=== PATIENT | female | born 1935 ===

== ENCOUNTER 2022-03-11 16:47 | Inpatient (IN) | payer OTHER ==
--- OUTSIDE RECORDS SUMMARY | 2022-03-11 16:54 | XMS REPORT | Continuity of Care Document ---
:1935 Author Organization [facility] t Address [address] [place] [address] Care Team Providers Name Role Phone Sharda Carlos Primary Care Physician Lauren ERICKSON Attending Clinician Unavailable Leia Root MD Attending Clinician Naresh GASPAR Attending Clinician NARESH Attending Clinician Unavailable Nurse, Pob Immunization Attending Clinician Unavailable Lavell Mao DO Attending Clinician LAVELL MAO Attending Clinician Unavailable Mark GASPAR, A Attending Clinician Doctor Unassigned, Name Attending Clinician Unavailable 1, Lab Attending Clinician Unavailable Naresh GASPAR Admitting Clinician NARESH Admitting Clinician Unavailable Mark GASPAR, Sandra Admitting Clinician Payers Payer Name Policy Type Policy Number Effective Date Expiration Date S ource Problems Condition Condition Condition Status Onset Resolution Last Treating Co mments Source Name Details Category Date Date Treatment Clinician Date Influenza Influenza Disease Active Uni vers 4-20 ity of 00:00: [place] [address] Medical Branch No known No known Disease Unive rs active active ity of problems problems [facility] Allergies, Adverse Reactions, Alerts Allergy Allergy Status Severity Reaction(s) Onset Inactive Treating Comm ents Source Name Type Date Date Clinician Penicill Propensi Active Unknown - 2018-11 Uni vers ins ty to See comments 1-18 ity of adverse 00:00: [place] reaction 00 Medical s Branch Penicill Propensi Active Unknown - 2018-11 Uni vers ins ty to See comments 1-18 ity of adverse 00:00: [place] reaction 00 Medical s Branch PENICILL Drug Active Unknown-Cmnt 2018-1 Un dre INS Class 1-18 ity of 00:00: [place] 00 Medical [place] Social History Social Habit Start Date Stop Date Quantity Comments Source Exposure to 2022-02-23 2022-03-05 Not sure [facility] SARS-CoV-2 00:00:00 03:20:00 [facility] (event) Branch Alcohol intake 2022-03-05 2022-03-05 Ex-drinker [facility] 00:00:00 00:00:00 (finding) [facility] Tobacco use and 2019-10-03 2019-10-03 Never used Universit y of exposure 00:00:00 00:00:00 [facility] Sex Ass[birth year] Universit y of 00:00:00 00:00:00 [facility] Smoking Status Start Date Stop Date Source Former smoker 2019-10-03 00:00:00 2019-10-03 00:00:00 [facility] Medications Ordered Filled Start Stop Current Ordering Indication Dosage Frequency Signature Comments Components Source Medication Medication Date Date Medication? Clinician (SIG) Name Name predniSONE 2021- Yes [id number] 20mg Take 1 Univers 20 mg 03-07- tablet by ity of tablet 00:00: 04:59 mouth [place] 00 :00 daily for Medical 3 days. Branch predniSONE 2021- Yes [id number] 20mg Take 1 Univers 20 mg 03-07- tablet by ity of tablet 00:00: 04:59 mouth [place] 00 :00 daily for Medical 3 days. Branch hydroCHLORO Yes 12.5mg 12.5 mg, Univers thiazide - Oral, ity of (ESIDRIX) 14:00: DAILY, [place] tablet 12.5 00 First dose Me dical mg on [place] Branch 03/06/22 at 0900, Until Discontinu ed, Routine predniSONE 2021- Yes 20mg 20 mg, Univ ers (DELTASONE) 03-06- Oral, ity of tablet 20 14:00: 13:59 DAILY, 4 [place] as mg 00 :00 doses, Medical First dose Branch on [place] 03/06/22 at 0900, Last dose on 03/09/22 at 0900, Routine hydrALAZINE 2022-0 Yes 25mg 25 mg, Univ ers (APRESOLINE 4-21 Oral, BID, it y of ) tablet 25 13:45: First dose [place] mg 00 on [place] Medical 03/06/22 at Branch 0845, Until Discontinu ed, Routine lisinopril 2022-0 Yes 20mg Take 20 mg U nivers 10 mg 4-21 by mouth 2 ity of tablet 12:11: (two) [place] 44 times Medical daily. Branch zolpidem 2022-0 Yes 5mg Take 5 mg Univ ers (AMBIEN) 5 4-21 by mouth ity o f mg tablet 12:11: at bedtime [place] 44 as needed Medical for Branch Insomnia. atorvastati 2022-0 Yes 20mg Take 20 mg Univers n 20 mg 4-21 by mouth ity of tablet 12:11: at [place] [address] bedtime. Medical Branch hydroCHLORO 2022-0 Yes 25mg Take 25 mg Univers thiazide 25 4-21 by mouth ity of mg tablet 12:11: daily. [place] [address] Indication Medical s: 1/2 tab Branch daily metoprolol 2022-0 Yes 50mg Take 50 mg U nivers tartrate 50 4-21 by mouth 2 it y of mg tablet 12:11: (two) [place] 44 times Medical daily. Branch lisinopril 2022-0 Yes 20mg Take 20 mg U nivers 10 mg 4-21 by mouth 2 ity of tablet 12:11: (two) [place] 44 times Medical daily. Branch zolpidem 2022-0 Yes 5mg Take 5 mg Univ ers (AMBIEN) 5 4-21 by mouth ity o f mg tablet 12:11: at bedtime [place] 44 as needed Medical for Branch Insomnia. atorvastati 2022-0 Yes 20mg Take 20 mg Univers n 20 mg 4-21 by mouth ity of tablet 12:11: at [place] [address] bedtime. Medical Branch hydroCHLORO 2022-0 Yes 25mg Take 25 mg Univers thiazide 25 4-21 by mouth ity of mg tablet 12:11: daily. [place] [address] Indication Medical s: 1/2 tab Branch daily metoprolol 2022-0 Yes 50mg Take 50 mg U nivers tartrate 50 4-21 by mouth 2 it y of mg tablet 12:11: (two) [place] 44 times Medical daily. Branch hydrALAZINE 2021- No 50mg Take 50 mg Univers 50 mg -21 -21 by mouth ity of tablet 10:43: 00:00 every 6 [place] 18 :00 (six) Medical hours. [place] Indication s: 1/2 TAB DAILY atorvastati Yes 20mg 20 mg, Univ ers n (LIPITOR) 4-21 Oral, QHS, it y of tablet 20 02:00: First dose [place] mg 00 on Thu03/05/22 at [place] 2100, Until Discontinu ed, Routine albuterol Yes [id number] 2{puff} Inhale 2 Univers (VENTOLIN 4-21 Puffs ity of HFA) 90 00:00: every 6 [place] mcg/actuati 00 (six) Medical on inhaler hours as Branc h needed for Wheezing or Shortness of Breath. albuterol Yes [id number] 2{puff} Inhale 2 Univers (VENTOLIN 4-21 Puffs ity of HFA) 90 00:00: every 6 [place] mcg/actuati 00 (six) Medical on inhaler hours as Branc h needed for Wheezing or Shortness of Breath. hydrALAZINE 2021- Yes [id number] 25mg Take 1 Univers 25 mg 4-05 04-22 tablet by ity of tablet 00:00: 04:59 mouth 2 [place] 00 :00 (two) Medical times [place] daily for 30 days. hydrALAZINE 2021- Yes [id number] 25mg Take 1 Univers 25 mg 4-21 05-22 tablet by ity of tablet 00:00: 04:59 mouth 2 [place] 00 :00 (two) Medical times [place] daily for 30 days. oseltamivir 2021- Yes [id number] 75mg Take 1 Univers 75 mg 4-21 -26 capsule by ity of capsule 00:00: 04:59 mouth 2 [place] 00 :00 (two) Medical times [place] daily for 4 days. oseltamivir 0 2021- Yes [id number] 75mg Take 1 Univers 75 mg 4-21 04-26 capsule by ity of capsule 00:00: 04:59 mouth 2 [place] 00 :00 (two) Medical times [place] daily for 4 days. ibuprofen 2022-0 Yes 400mg 400 mg, Univ ers (IBU) 4-20 Oral, ity of tablet 400 15:58: Q6HPRN, [place] mg 03 Starting Medical on Thu Branch 03/05/22 at 1058, Until Discontinu ed, Routine, Pain (scale 1-3), Temp > 38.5 C lisinopriL 2022-0 Yes 20mg 20 mg, Unive rs (PRINIVIL,Z 4-20 Oral, BID, it y of ESTRIL) 15:45: First dose [place] tablet 20 00 on Thu Medical mg 03/05/22 at Branch 1045, Until Discontinu ed, Routine metoprolol 2022-0 Yes 50mg 50 mg, Unive rs tartrate 4-20 Oral, BID, ity o f (LOPRESSOR) 15:45: First dose [place] tablet 50 00 on Thu Medical mg 03/05/22 at Branch 1045, Until Discontinu ed, Routine zolpidem 202-0 Yes 5mg 5 mg, Univers (AMBIEN) 4-20 Oral, ity of tablet 5 mg 15:34: QHSPRN, [place] as 14 Starting Medical on Thu Branch 03/05/22 at 1034, Until Discontinu ed, Routine, Insomnia oseltamivir 2021-0 Yes 75mg 75 mg, Univ ers (TAMIFLU) 4-20 Oral, BID, ity of capsule 75 14:15: First dose [place] mg 00 on Thu Medical 03/05/22 at Branch 0915, Until Discontinu ed, Routine ondansetron 202-0 Yes 4mg 4 mg, Slow Univers (ZOFRAN 4-20 IV Push, ity of (PF)) 14:11: Q6HPRN, [place] injection 4 36 Starting Medi bernard mg on Thu Branch 03/05/22 at 0911, Until Discontinu ed, Routine, Nausea and Vomiting (N/V) labetaloL 2022-0 Yes 10mg 10 mg, Univer s (NORMODYNE) 4-20 Slow IV ity o f injection 14:07: Push, [place] 10 mg 57 Q4HPRN, Medical Starting Branch on Thu03/05/22 at 0907, Until Discontinu ed, Routine, SBP >180 or DBP > 100 ipratropium 2022-0 Yes 3mL 3 mL, Unive rs -albuteroL 4-20 Inhalation ity of (DUONEB) 13:00: , QID, [place] 0.5 mg-3 00 First dose Medic al mg(2.5 mg on Wed Branch base)/3 mL 03/05/22 at nebulizer 0800, solution 3 Until mL Discontinu ed, Routine iopamidol 2021- No [id number] 100mL 100 mL, Univers (ISOVUE 03-05-20 Intravenou ity o f 370-500 mL) 12:45: 11:41 s, ONCE, 1 [place] injection 00 :00 dose, On Medica l 100 mL Wed Branch 03/05/22 at 0745, Routine metoprolol 2021- No 1{tbl} Take 1 Un dre ta-hydrochl -20 -20 tablet by it y of orothiaz 10:34: 00:00 mouth [place] 50-25 mg 25 :00 daily. Medical per tablet Branch methylPREDN No 40mg 40 mg, Uni vers ISolone sod 03-05-20 Intravenou i ty of succ 10:00: 09:02 s, ONCE, 1 [place] (SOLU-MEDRO 00 :00 dose, On Medi bernard L (PF)) Wed Branch injection 03/05/22 at 40 mg 0500, STAT lisinopril 2019-0 Yes 10mg Take 10 mg U nivers 10 mg 1-15 by mouth ity of tablet 17:07: daily. [place] 26 Medical Branch metoprolol 2019-0 Yes 1{tbl} Take 1 Uni vers ta-hydrochl 1-15 tablet by ity of orothiaz 17:07: mouth [place] 50-25 mg 26 daily. Medical per tablet Branch zolpidem 2019-0 Yes 5mg Take 5 mg Univ ers (AMBIEN) 5 1-15 by mouth ity o f mg tablet 17:07: at bedtime [place] 26 as needed Medical for Branch Insomnia. hydrALAZINE 2019-0 Yes 50mg Take 50 mg Univers 50 mg 1-15 by mouth ity of tablet 17:07: every 6 [place] 26 (six) Medical hours. Branch Indication s: 1/2 TAB DAILY atorvastati 2019-0 Yes 20mg Take 20 mg Univers n 20 mg 1-15 by mouth ity of tablet 17:07: at [place] 26 bedtime. Medical Branch hydroCHLORO 2020-0 Yes 25mg Take 25 mg Univers thiazide 25 1-15 by mouth ity of mg tablet 17:07: daily. [place] [address] Indication Medical s: 1/2 tab Branch daily lisinopril 2020-0 Yes 10mg Take 10 mg U nivers 10 mg 1-15 by mouth ity of tablet 17:07: daily. [place] [address] Medical Branch metoprolol 2020-0 Yes 1{tbl} Take 1 Uni vers ta-hydrochl 1-15 tablet by ity of orothiaz 17:07: mouth [place] 50-25 mg 26 daily. Medical per tablet Branch zolpidem 2020-0 Yes 5mg Take 5 mg Univ ers (AMBIEN) 5 1-15 by mouth ity o f mg tablet 17:07: at bedtime [place] 26 as needed Medical for Branch Insomnia. hydrALAZINE 2020-0 Yes 50mg Take 50 mg Univers 50 mg 1-15 by mouth ity of tablet 17:07: every 6 [place] [address] (six) Medical hours. Branch Indication s: 1/2 TAB DAILY atorvastati 2020-0 Yes 20mg Take 20 mg Univers n 20 mg 1-15 by mouth ity of tablet 17:07: at [place] [address] bedtime. Medical Branch hydroCHLORO 2020-0 Yes 25mg Take 25 mg Univers thiazide 25 1-15 by mouth ity of mg tablet 17:07: daily. [place] [address] Indication Medical s: 1/2 tab Branch daily lisinopril 2020-0 Yes 10mg Take 10 mg U nivers 10 mg 1-15 by mouth ity of tablet 17:07: daily. [place] [address] Medical Branch metoprolol 2020-0 Yes 1{tbl} Take 1 Uni vers ta-hydrochl 1-15 tablet by ity of orothiaz 17:07: mouth [place] 50-25 mg 26 daily. Medical per tablet Branch zolpidem 2020-0 Yes 5mg Take 5 mg Univ ers (AMBIEN) 5 1-15 by mouth ity o f mg tablet 17:07: at bedtime [place] 26 as needed Medical for Branch Insomnia. hydrALAZINE 2020-0 Yes 50mg Take 50 mg Univers 50 mg 1-15 by mouth ity of tablet 17:07: every 6 [place] [address] (six) Medical hours. Branch Indication s: 1/2 TAB DAILY atorvastati 2020-0 Yes 20mg Take 20 mg Univers n 20 mg 1-15 by mouth ity of tablet 17:07: at [place] [address] bedtime. Medical Branch hydroCHLORO 2020-0 Yes 25mg Take 25 mg Univers thiazide 25 1-15 by mouth ity of mg tablet 17:07: daily. [place] [address] Indication Medical s: 1/2 tab Branch daily lisinopril 2020-0 Yes 10mg Take 10 mg U nivers 10 mg 1-15 by mouth ity of tablet 17:07: daily. [place] [address] Medical Branch metoprolol 2020-0 Yes 1{tbl} Take 1 Uni vers ta-hydrochl 1-15 tablet by ity of orothiaz 17:07: mouth [place] 50-25 mg 26 daily. Medical per tablet Branch zolpidem 2020-0 Yes 5mg Take 5 mg Univ ers (AMBIEN) 5 1-15 by mouth ity o f mg tablet 17:07: at bedtime [place] 26 as needed Medical for Branch Insomnia. hydrALAZINE 2020-0 Yes 50mg Take 50 mg Univers 50 mg 1-15 by mouth ity of tablet 17:07: every 6 [place] [address] (six) Medical hours. Branch Indication s: 1/2 TAB DAILY atorvastati 2020-0 Yes 20mg Take 20 mg Univers n 20 mg 1-15 by mouth ity of tablet 17:07: at [place] [address] bedtime. Medical Branch hydroCHLORO 2020-0 Yes 25mg Take 25 mg Univers thiazide 25 1-15 by mouth ity of mg tablet 17:07: daily. [place] [address] Indication Medical s: 1/2 tab Branch daily water for 2020-0 Yes PRN, Univers irrigation 1-15 Starting ity o f irrigation 16:31: Wed [place] solution 00 11/30/19 at Medic al 1031, Branch Until Discontinu ed, Routine, Intra-op sodium 2020-0 Yes PRN, Univers chloride 1-15 Starting ity of (NS) 16:31: Wed [place] injection 11/30/19 at Medi bernard 1031, Branch Until Discontinu ed, Routine, Intra-op neomycin-po 2020-0 Yes PRN, Univer s lymyxin-dex 1-15 Starting ity of amethasone 16:31: Wed [place] (MAXITROL) 00 11/30/19 at Med ical 3.5 1031, Branch mg/g-10,000 Until unit/g-0.1 Discontinu % ed, ophthalmic Routine, ointment Intra-op lidocaine-e 2020-0 Yes PRN, Univer s pinephrine -15 Starting ity o f (XYLOCAINE 16:30: Wed [place] W/EPINEPHRI 00 11/30/19 at Ne dical NE) 2 1030, Branch %-1:200,000 Until injection Discontinu ed, Routine, Intra-op Hyaluronida 2020-0 Yes PRN, Univer s se, Human - Starting ity of Recomb. 16:30: Thu [place] (HYLENEX) 11/30/19 at Medi bernard injection 1030, Branch Until Discontinu ed, Routine, Intra-op gentamicin 2020-0 Yes PRN, Univers injection 11-30 Starting ity of 16:30: Thu [place] 11/30/19 at Medical 1030, Branch Until Discontinu ed, JENNIFER, Intra-op EPINEPHrine 2020-0 Yes PRN, Univer s 1:1,000 (1 - Starting ity o f mg/mL) 16:30: Thu (ADRENALIN) 11/30/19 at Ne dical injection 1030, Branch Until Discontinu ed, Routine, Intra-op DUOVISC 2020-0 Yes PRN, Univers (DUOVISC 11-30 Starting ity of VISCO 16:30: Thu ELASTIC) 3 11/30/19 at [facility] ical %-4 %(0.5 1030, Branch mL) 1 % Until (0.55 mL) Discontinu intraocular ed, injection Routine, Intra-op mydriatic 2020-0 2020- No .5mL 0.5 mL, Univ ers #5 11-30 Left Eye, ity of ophthalmic 16:30: 15:31 ONCE, 1 [place] solution 00 :00 dose, Thu Medica l 0.5 mL 11/30/19 at [place] syringe 1030, Routine, DSU Pre-op dexamethaso 2020-0 Yes PRN, Univer s ne - Starting ity of (DECADRON 16:29: Thu [place] PHOSPHATE) 00 11/30/19 at Med ical injection 1029, Branch Until Discontinu ed, Routine, Intra-op ceFAZolin 2020-0 Yes PRN, Univers (ANCEF) - Starting ity of injection 16:29: Thu [place] 00 11/30/19 at Medical 1029, Branch Until Discontinu ed, JENNIFER, Intra-op carbachoL 2020-0 Yes PRN, Univers (MIOSTAT) 1-15 Starting ity of 0.01 % 16:29: Thu [place] intraocular 00 11/30/19 at Ne dical injection 1029, Branch Until Discontinu ed, Routine, Intra-op bupivacaine 2020-0 Yes PRN, Univer s (preserv 1-15 Starting ity of free) 16:28: Thu (SENSORCAIN 00 11/30/19 at Ne dicky E MPF) 0.75 1028, Branch % (7.5 Until mg/mL) Discontinu injection ed, Routine, Intra-op balanced 2020-0 Yes PRN, Univers salt irrig -15 Starting ity o f soln comb1 16:28: Thu [place] (BSS PLUS) 11/30/19 at [facility] ical ophthalmic 1028, Branch solution Until 500 mL bag Discontinu ed, Routine, Intra-op lactated 2019-0 2020- No 500mL at 20 Univer s ringers IV 15 01-15 mL/hr, 500 it y of infusion 15:00: 15:17 mL, IV [place] 500 mL 00 :00 Infusion, Medical ONCE, 1 Branch dose, Thu11/30/19 at 0900, Routine, DSU Pre-op lisinopril 2020-0 Yes 10mg Take 10 mg U nivers 10 mg 1-10 by mouth ity of tablet 16:52: daily. [place] 46 Medical Branch metoprolol 2020-0 Yes 1{tbl} Take 1 Uni vers ta-hydrochl 1-10 tablet by ity of orothiaz 16:52: mouth [place] 50-25 mg 46 daily. Medical per tablet Branch zolpidem 2020-0 Yes 5mg Take 5 mg Univ ers (AMBIEN) 5 1-10 by mouth ity o f mg tablet 16:52: at bedtime [place] 46 as needed Medical for Branch Insomnia. hydrALAZINE 2020-0 Yes 50mg Take 50 mg Univers 50 mg 1-10 by mouth ity of tablet 16:52: every 6 [place] 46 (six) Medical hours. Branch Indication s: 1/2 TAB DAILY atorvastati 2020-0 Yes 20mg Take 20 mg Univers n 20 mg 1-10 by mouth ity of tablet 16:52: at [place] [address] bedtime. Medical Branch Immunizations Ordered Filled Immunization Date Status Comments [facility] e Immunization Name Name SARS-COV-2 COVID-19 2021-07-26 Completed Unive rsity of MODERNA VACCINE 00:00:00 [facility] SARS-COV-2 COVID-19 2021-07-26 Completed Unive rsity of MODERNA VACCINE 00:00:00 [facility] Branch SARS-COV-2 COVID-19 2021-07-26 Completed Unive rsity of MODERNA VACCINE 00:00:00 [facility] [place] Vital Signs Vital Name Observation Time Observation Value Comments Source Respiratory rate 2022-03-06 16:35:00 18 /[facility] Oxygen saturation in 2022-03-06 16:35:00 99 /min [facility] Arterial blood by [facility] Pulse oximetry Branch Systolic blood 2022-03-06 13:00:00 175 mm[Hg] Univer sity of pressure [facility] Diastolic blood 2022-03-06 13:00:00 80 mm[Hg] Unive rsity of [facility] Heart rate 2022-03-06 13:00:00 86 /min [facility] Body temperature 2022-03-06 13:00:00 37.11 Deanna [facility] Body height 2022-03-05 13:40:00 167.6 cm [facility] Body weight 2022-03-05 13:40:00 78.472 kg [facility] BMI 2022-03-05 13:40:00 27.92 kg/m2 [facility] Systolic blood 2019-11-30 16:57:00 142 mm[Hg] Univer sity of pressure [facility] Diastolic blood 2019-11-30 16:57:00 57 mm[Hg] Unive rsity of pressure [facility] Heart rate 2019-11-30 16:57:00 63 /[facility] Respiratory rate 2019-11-30 16:57:00 16 /min Univ ersity of [facility] Body temperature 2019-11-30 16:45:00 36.11 Deanna [facility] Oxygen saturation in 2019-11-30 16:45:00 97 /min [place] of Arterial blood by [facility] Pulse oximetry Branch Body height 2019-11-25 13:00:00 165.1 cm [facility] Body weight 2019-11-25 13:00:00 83.462 kg [facility] BMI 2019-11-25 13:00:00 30.62 kg/m2 [facility] Systolic blood 2019-11-30 16:57:00 142 mm[Hg] Univer sity of pressure [facility] Diastolic blood 2019-11-30 16:57:00 57 mm[Hg] [facility] Heart rate 2019-11-30 16:57:00 63 /min [facility] Respiratory rate 2019-11-30 16:57:00 16 /min [facility] Body temperature 2019-11-30 16:45:00 36.11 Deanna [facility] Oxygen saturation in 2019-11-30 16:45:00 97 /min [facility] Arterial blood by [facility] Pulse oximetry Branch Body height 2019-11-25 13:00:00 165.1 cm [facility] Body weight 2019-11-25 13:00:00 83.462 kg [facility] BMI 2019-11-25 13:00:00 30.62 kg/m2 [facility] Procedures Procedure Date / Time Performing Clinician Source Performed MAGNESIUM 2022-03-06 14:09:00 Apoorva Infante [facility] BASIC METABOLIC PANEL 2022-03-06 14:09:[address] [facility] (NA, K, CL, CO2, GLUCOSE, Medica l Branch BUN, CREATININE, CA) CBC WITH DIFF 2022-03-06 14:09:00 Naresh [facility] POCT GLUCOSE (AUTOMATED) 2022-03-06 01:05:00 Apoorva Infante [facility] [place] MRSA / MSSA SCREEN BY 2022-03-05 23:23:00 [facility] POCT GLUCOSE (AUTOMATED) 2022-03-05 22:04:00 [place], Apoorva [facility] ACUTE CARE ARTERIAL BLOOD 2022-03-05 12:26:00 [facility] CHE[facility] PULMONARY 2022-03-05 11:42:00 Annmarie Root [facility] ANGIOGRAM [facility] Branch XR CHEST 1 VW 2022-03-05 10:18:56 Annmarie Root [facility] RAPID INFLUENZA A/B 2022-03-05 09:08:00 Annmarie Root [facility] COVID-19 (ID NOW RAPID 2022-03-05 09:08:00 Annmarie Root [facility] TESTING) Medical Branch LAB ONLY COVID 2022-03-05 09:08:00 Annmarie Root [facility] BLOOD CULTURE SCREEN 2022-03-05 09:07:00 Annmarie Root [facility] 2022-03-05 08:24:00 Annmarie Root [facility] TROPONIN I 2022-03-05 08:24:00 Annmarie Root [facility] COMP. METABOLIC PANEL 2022-03-05 08:24:00 Annmarie Root [facility] ([id number]) [facility] CBC WITH DIFF 2022-03-05 08:24:00 Annmarie Root [facility] PROTHROMBIN TIME / INR 2022-03-05 08:24:00 Annmarie Root [facility] ACTIVATED PARTIAL 2022-03-05 08:24:00 Annmarie Root [facility] THRMPLAS TARAH [facility] N-TERMINAL PRO-BNP 2022-03-05 08:24:00 Annmarie Root [facility] LACTIC ACID WHOLE BLOOD 2022-03-05 08:24:00 Annmarie Root [facility] HB ECG ROUTINE & RHYTHM 2022-03-05 08:09:56 Annmarie Root [facility] SARS-COV-2 COVID-19 2021-07-26 16:27:00 Doctor Unassigned, [facility] VACCINE,0.5ML,IM [place] [facility] (MODERNA) DAY SURGERY - [facility] 2019-11-30 06:01:00 Doctor Unayosvany, [facility] [place] [facility] COMP. METABOLIC PANEL 2019-11-29 15:30:00 Eulogio Flores [facility] ([id number]) Medical [place] CBC WITH DIFFERENTIAL 2019-11-29 15:30:00 Eulogio Flores [facility] NOTICE OF PRIVACY 2019-11-29 15:05:57 Doctor Unassnanda, [facility] PRACTICES [place] [facility] CONSENT/REFUSAL FOR 2019-11-29 15:05:34 Doctor Pedro, [facility] DIAGNOSIS AND TREATMENT [place] [facility] ASSIGNMENT OF BENEFITS 2019-11-29 15:05:04 [facility] [place] [facility] [place] PHYSICIAN ORDERS 2019-11-29 06:01:00 Doctor Unayosvany, [facility] [place] [facility] [place] Encounters Start End Encounter Admission Attending Care Care Encounter Source Date/Time Date/Time Type Type Clinicians Facility Department ID 2022-03-07 2022-03-07 Transition AguilarJAHAIRA [id number] Univers 00:00:00 00:00:00 of Care Anel MUNOZY [id number] it y of [place] [id number] [facility] [id number] [facility] 403 Branch 2022-03-05 2022-03-06 Emergency BuffyzandraMaximilian engjennifer [facility] [id number] Univers 03:20:00 12:00:00 Apoorva Infante [id number] ity of [place] 4.2.7.2.686 [facility] [id number] [facility] 080 Branch 2022-03-05 2022-03-06 Outpatient X NARESH ARWENDY JOEY [id number] Univers 03:20:00 12:00:00 APOORVA cee [facility] 2021-07-26 2021-07-26 Imm/Inj Nurse, [facility] Pob Immunization [facility] [id number] Univers 11:20:27 11:23:11 Visit Eddie Mao 350.1.13 .10 [place].686 [place] Profess[place] [id number] Ne dical [facility] [address] [facility] 2021-07-26 2021-07-26 Outpatient R CHRISTY [facility] [id number] [facility] [place] [facility] 11:20:00 11:20:00 EDDIE ity [facility] 2019-11-30 2019-11-30 [facility] [id number] 08:54:00 11:07:00 Encounter Eulogio Cardoso 350.1.13.10 [place] 4.2.7.2.686 Surgical [id number] [place] [address] 2019-11-30 2019-11-30 [facility] [id number] [facility] [place] [facility] 08:54:00 11:07:00 Encounter Eulogio Cardoso 350.1.13.10 [place].686 [place] Surgical [phone] [address] 2019-11-30 2019-11-30 Orders Doctor ARMIDA 1.2.840.114 [id number] 00:00:00 00:00:00 Only Unassigned, CONOR 350.1.13.10 [place] [facility] 4.2.7.2.686 [id number] [facility] 2019-11-30 2019-11-30 Orders Doctor ARMIDA 1.2.840.114 [id number] Univers 00:00:00 00:00:00 Only Unassigned, CONOR 350.1.13.10 ity of [place] [facility] 4.2.7.2.686 Dennys as [phone] [facility] [address] [place] 2019-11-29 2019-11-29 Hand Woodworking Sander 1, Adc Lab [facility] 1.2.840.114 [id number] Univers 09:06:07 09:21:07 Visit Eulogio Flores 350.1.13.1 0 [place] [phone] [facility] [address] 2019-11-29 2019-11-29 Hand Woodworking Sander 1, Adc Lab [facility] 1.2.840.114 [id number] 09:06:07 09:21:07 Visit [place] 350.1.13.10 [place] 4.2.7.2.686 [place] [phone] 353 2019-11-29 2019-11-29 Orders Doctor ARMIDA 1.2.840.114 [id number] Univers 00:00:00 00:00:00 Only Unassigned, CONOR 350.1.13.10 ity of [place] [facility] 4.2.7.2.686 Dennys as [id number] Medi b[place]ard [address] 2019-11-29 2019-11-29 Orders Doctor ARMDIA 1.2.840.114 [id number] 00:00:00 00:00:00 Only Unassigned, CONOR 350.1.13.10 [place] [facility] 4.2.7.2.686 [id number] 009 Results Test Description Test Time Test Comments Results Result Comments Source Magnesium Serum 2022-03-06 14:31:45 Test Item Value Reference Range Interpretation Comme nts MAGNESIUM (test code = 6915108986) 1.8 mg/dL 1.7-2.4 Lab Interpretation (test code = 00805-6) Normal [facility] Metabolic Panel (NA, K, CL, CO2, GLUCOSE, BUN, CREATININE, CA)2022-03-06 14:31:29 Test Item Value Reference Range Interpretation Comments NA (test code = 139 mmol/L 135-145 4965823811) K (test code = 3.4 mmol/L 3.5-5.0 L 5254789688) CL (test code = 99 mmol/L 98-108 0830096206) CO2 TOTAL (test code = 32 mmol/L 23-31 H 7549724958) AGAP (test code = 2-16 6399306991) BUN (test code = 17 mg/dL 7-23 3135011031) GLUCOSE (test code = 177 mg/dL 70-110 H 8948665895) CREATININE (test code = 0.79 mg/dL 0.50-1.04 8153336663) CALCIUM (test code = 7.9 mg/dL 8.6-10.6 L 6558294523) eGFR (test code = mL/min/1.73m2 4903378853) MUSTAPHA (test code = MUSTAPHA) Association of Glomerular Filtration Rate (GFR) and Staging of Kidney Disease* + --+ --+ ------+| GFR (mL/min/1.73 m2) ?| With Kidney Damage ?| ?Without Kidney Damage+ --------+ --------+ +| ?>90 ?| ?Stage one ?| ? Normal ?+ ---+ ---+ -------+| ?60-89 ?| ?Stage two ?| ? Decreased GFR ? + --+ --+ ------+| ?30-59 ?| ?Stage three ?| ? Stage three ? + --+ --+ ------+| ?15-29 ?| ?Stage four ? | ? Stage four ?+ ---+ ---+ -------+| ?<15 (or dialysis) ? ?| ?Stage five ? | ? Stage five ?+ ---+ ---+ -------+ *Each stage assumes the associated GFR level has been in effect for at least three months. ?Stages 1 to 5, with or without kidney disease, indicate chronic kidney disease. Notes: Determination of stages one and two (with eGFR >59mL/min/1.73 m2) requires estimation of kidney damage for at least three months as defined by structural or functional abnormalities of the kidney, manifested by either:Pathological abnormalities or Markers of kidney damage (including abnormalities in the composition of the blood or urine or abnormalities in imaging tests). Lab Interpretation Abnormal (test code = 78187-7) [facility] with [id number] 14:29:07 Test Item Value Reference Range Interpretation Comments WBC (test code = See_Comment [Automated 2453-2) message] The sy stem which generated this result transmitted reference range : 4.30 - 11.10 10*3/?L. The reference range was not used to interpret this result as normal/abnormal . RBC (test code = See_Comment [Automated 437-5) message] The sy stem which generated this result transmitted reference range : 3.93 - 5.25 10*6/?L. The reference range was not used to interpret this result as normal/abnormal . HGB (test code = 13.0 g/dL 11.6-15.0 718-7) HCT (test code = 40.8 % 35.7-45.2 4544-3) MCV (test code = 91.7 fL 80.6-95.5 787-2) MCH (test code = 29.2 pg 25.9-32.8 785-6) MCHC (test code = 31.9 g/dL 31.6-35.1 786-4) RDW-SD (test code = 44.9 fL 39.0-49.9 56635-8) RDW-CV (test code = 13.2 % 12.0-15.5 788-0) PLT (test code = See_Comment L [Automated 777-3) message] The sy stem which generated this result transmitted reference range : 166 - 358 10*3/ ?L. The reference r eddie was not used to interpret this result as normal/abnormal . MPV (test code = 9.4 fL 9.5-12.9 L 23098-8) IPF % (test code = 2.1 % 1.3-7.7 Platelet count 4555971050) measured by fluorescence method. NRBC/100 WBC (test See_Comment [Automat ed code = 0491431063) message] The system which generated this result transmitted reference range : 0.0 - 10.0 /100 WBCs. The refer ence range was not u sed to interpret th is result as normal/abnormal . NRBC x10^3 (test code <0.01 See_Comment [Auto mated = 7585664278) message] The s ystem which generated this result transmitted reference range : 10*3/?L. The reference range was not used to interpret this result as normal/abnormal . GRAN MAT (NEUT) % 72.5 % (test code = 770-8) IMM GRAN % (test code 0.40 % = 0856332828) LYMPH % (test code = 16.1 % 736-9) MONO % (test code = 11.0 % 5905-5) EOS % (test code = 0.0 % 713-8) BASO % (test code = 0.0 % 706-2) GRAN MAT x10^3(ANC) 3.97 10*3/uL 1.88-7.09 (test code = 1544897512) IMM GRAN x10^3 (test <0.03 0.00-0.06 code = 1536428863) LYMPH x10^3 (test code 0.88 10*3/uL 1.32-3.29 L = 731-0) MONO x10^3 (test code 0.60 10*3/uL 0.33-0.92 = 742-7) EOS x10^3 (test code = <0.03 0.03-0.39 L 711-2) BASO x10^3 (test code <0.03 0.01-0.07 = 704-7) Lab Interpretation Abnormal (test code = 46709-3) [facility] GLUCOSE (AUTOMATED)2022-03-06 01:59:07 Test Item Value Reference Range Interpretation Comments POCT GLU (test code = 3844927612) 232 mg/dL 70-110 H Lab Interpretation (test code = Abnormal 02108-9) [facility] GLUCOSE (AUTOMATED)2022-03-05 22:10:18 Test Item Value Reference Range Interpretation Comments POCT GLU (test code = 6656940616) 175 mg/dL 70-110 H Lab Interpretation (test code = Abnormal 21113-2) [facility] Arterial Blood Gas.2022-03-05 12:29:37 Test Item Value Reference Range Interpretation Comments PH (test code = 2) 7.35-7.45 PCO2 (test code = See_Comment [Automat ed message] 6239101855) The system [facility] generated this result transmitted ref erence range: 35 - 45 mmHg. The reference r eddie was not used to interpret this result as normal/abnor mal. PO2 (test code = See_Comment [Automated message] 6962076996) The system [facility] generated this result transmitted ref erence range: 80 - 100 mmHg. The reference r eddie was not used to interpret this result as normal/abnor mal. HCO3 (test code = See_Comment H [Automate d message] 4191364070) The system [facility] generated this result transmitted ref erence range: 22 - 26 mEq/L. The reference r eddie was not used to interpret this result as normal/abnor mal. BE (test code = See_Comment [Automated message] 4570401650) The system whic h generated this result transmitted ref erence range: -3.0 - 3 .0 mEq/L. The refe rence range was not u sed to interpret this result as normal/abnor mal. Lab Interpretation (test Abnormal code = 53070-0) [facility] WITH [id number] 09:07:26 Test Item Value Reference Range Interpretation Comments WBC (test code = See_Comment [Automated 4990-2) message] The sy stem which generated this result transmitted reference range : 4.30 - 11.10 10*3/?L. The reference range was not used to interpret this result as normal/abnormal . RBC (test code = See_Comment [Automated 789-8) message] The sy stem which generated this result transmitted reference range : 3.93 - 5.25 10*6/?L. The reference range was not used to interpret this result as normal/abnormal . HGB (test code = 13.9 g/dL 11.6-15.0 718-7) HCT (test code = 44.8 % 35.7-45.2 4544-3) MCV (test code = 93.3 fL 80.6-95.5 787-2) MCH (test code = 29.0 pg 25.9-32.8 785-6) MCHC (test code = 31.0 g/dL 31.6-35.1 L 786-4) RDW-SD (test code = 46.0 fL 39.0-49.9 79362-5) RDW-CV (test code = 13.4 % 12.0-15.5 788-0) PLT (test code = See_Comment L [Automated 777-3) message] The sy stem which generated this result transmitted reference range : 166 - 358 10*3/ ?L. The reference r eddie was not used to interpret this result as normal/abnormal . MPV (test code = 9.4 fL 9.5-12.9 L 47453-0) NRBC/100 WBC (test See_Comment [Automat ed code = 8890194855) message] The system which generated this result transmitted reference range : 0.0 - 10.0 /100 WBCs. The refer ence range was not u sed to interpret th is result as normal/abnormal . NRBC x10^3 (test code <0.01 See_Comment [Auto mated = 3905953992) message] The s [employer] which generated this result transmitted reference range : 10*3/?L. The reference range was not used to interpret this result as normal/abnormal . GRAN MAT (NEUT) % 61.2 % (test code = 770-8) IMM GRAN % (test code 1.30 % = 4111337964) LYMPH % (test code = 23.6 % 736-9) MONO % (test code = 13.3 % 5905-5) EOS % (test code = 0.4 % 713-8) BASO % (test code = 0.2 % 706-2) GRAN MAT x10^3(ANC) 3.35 10*3/uL 1.88-7.09 (test code = 2836264452) IMM GRAN x10^3 (test 0.07 10*3/uL 0.00-0.06 H code = 9587100341) LYMPH x10^3 (test code 1.29 10*3/uL 1.32-3.29 L = 731-0) MONO x10^3 (test code 0.73 10*3/uL 0.33-0.92 = 742-7) EOS x10^3 (test code = <0.03 0.03-0.39 L 711-2) BASO x10^3 (test code <0.03 0.01-0.07 = 704-7) Lab Interpretation Abnormal (test code = 83974-2) [facility] [id number] 09:06:10 Test Item Value Reference Interpretation Comments Range TROPONIN I (test 0.001 ng/mL See_Comment [Automated code = 6400883116) message] The system which generated this result transmitted reference range : <=0.034. The reference range was not used to interpret this result as normal/abnormal . MUSTAPHA (test code = Reference (Normal) MUSTAPHA) Range (defined by the 99th percentile reference limit): <= 0.034 ng/mL Note: Cardiac troponin begins to rise 3-4 hours after the onset of ischemia. Repeat in 4-6 hours if the sample was drawn within 3-4 hours of the onset of the symptom and found normal. Diagnosis of myocardial injury is made with acute changes in cTn concentrations with at least one serial sample above the 99th percentile upper reference limit (URL), taken together with the patient's clinical presentation. Biotin has been reported to cause a negative bias, interpret results relative to patient's use of biotin. Lab Interpretation Normal (test code = 44224-3) [facility] [id number] 09:03:09 Test Item Value Reference Range Interpretation Comments NT-proBNP (test code 607 pg/mL See_Comment H [Autom ated = 2860300839) message] The system which generated this result transmitted reference range : <=450. The reference range was not used to interpret this result as normal/abnormal . MUSTAPHA (test code = MUSTAPHA) Biotin has been reported to cause a negative bias, interpret results relative to patient's use of biotin. Lab Interpretation Abnormal (test code = 81339-2) [facility] ([id number])2022-03-05 08:54:25 Test Item Value Reference Range Interpretation Comments NA (test code = 139 mmol/L 135-145 2093661141) K (test code = 3.7 mmol/L 3.5-5.0 5588744130) CL (test code = 98 mmol/L 98-108 3776314690) CO2 TOTAL (test code = 32 mmol/L 23-31 H 2909525642) AGAP (test code = 2-16 5939569163) BUN (test code = 9 mg/dL 7-23 0138732797) GLUCOSE (test code = 135 mg/dL 70-110 H 1170199073) CREATININE (test code = 0.70 mg/dL 0.50-1.04 9248463521) TOTAL BILI (test code = 0.8 mg/dL 0.1-1.1 3851919144) CALCIUM (test code = 8.6 mg/dL 8.6-10.6 7034246151) T PROTEIN (test code = 7.0 g/dL 6.3-8.2 4085828989) ALBUMIN (test code = 4.0 g/dL 3.5-5.0 4471165571) ALK PHOS (test code = 79 U/L 34-122 0449780626) ALTv (test code = 24 U/L 5-35 1742-6) AST(SGOT) (test code = 61 U/L 13-40 H 4214222089) eGFR (test code = mL/min/1.73m2 3734370199) MUSTAPHA (test code = MUSTAPHA) Association of Glomerular Filtration Rate (GFR) and Staging of Kidney Disease* + --+ --+ ------+| GFR (mL/min/1.73 m2) ?| With Kidney Damage ?| ?Without Kidney Damage+ --------+ --------+ +| ?>90 ?| ?Stage one ?| ? Normal ?+ ---+ ---+ -------+| ?60-89 ?| ?Stage two ?| ? Decreased GFR ? + --+ --+ ------+| ?30-59 ?| ?Stage three ?| ? Stage three ? + --+ --+ ------+| ?15-29 ?| ?Stage four ? | ? Stage four ?+ ---+ ---+ -------+| ?<15 (or dialysis) ? ?| ?Stage five ? | ? Stage five ?+ ---+ ---+ -------+ *Each stage assumes the associated GFR level has been in effect for at least three months. ?Stages 1 to 5, with or without kidney disease, indicate chronic kidney disease. Notes: Determination of stages one and two (with eGFR >59mL/min/1.73 m2) requires estimation of kidney damage for at least three months as defined by structural or functional abnormalities of the kidney, manifested by either:Pathological abnormalities or Markers of kidney damage (including abnormalities in the composition of the blood or urine or abnormalities in imaging tests). Lab Interpretation Abnormal (test code = 11676-0) [facility], [id number] 08:54:05 Test Item Value Reference Range Interpretation Comments LIPASE (test code = 1847828772) 152 U/L 0-220 Lab Interpretation (test code = Normal 72382-4) [facility]2022-[facility]-20 08:43:47 Test Item Value Reference Range Interpretation Comments APTT Patient (test See_Comment [Automat ed code = 3173-2) message] The system which generated this result transmitted reference range : 23 - 38 Seconds . The reference range was not used to interpr et this result as normal/abnormal . MUSTAPHA (test code = MUSTAPHA) The [facility] patient population mean normal value for aPTT is 30 seconds. Lab Interpretation Normal (test code = 25153-2) [facility]PROTHROM[facility] TIME / [id number] 08:41:27 Test Item Value Reference Range Interpretation Comments PROTIME PATIENT (test See_Comment [Auto mated message] code = 5964-2) The system ich generated this result transmitted ref erence range: 12.0 - 1 4.7 Seconds. The re ference range was not u sed to interpret this result as normal/abnor mal. INR (test code = 6301-6) Nor mal INR <1.1; Warfarin Therap eutic range 2.0 to 3. 0 or 2.5 to 3.5, dep ending upon the indica tions. Lab Interpretation (test Normal code = 16040-7) [facility] ([id number])2019-11-29 15:59:00 Test Item Value Reference Range Interpretation Comments NA (test code = 143 mmol/L 135-145 6279828605) K (test code = 4.2 mmol/L 3.5-5 3894173475) CL (test code = 103 mmol/L 98-108 3440732132) CO2 TOTAL (test code = 34 mmol/L 23-31 H 6843021491) AGAP (test code = 2-16 7222450764) BUN (test code = 28 mg/dL 7-23 H 6206814359) GLUCOSE (test code = 179 mg/dL 70-110 H 0776301799) CREATININE (test code = 1.03 mg/dL 0.5-1.04 7406129138) TOTAL BILI (test code = 0.8 mg/dL 0.1-1.5 1201936050) CALCIUM (test code = 9.4 mg/dL 8.6-10.6 4006003760) T PROTEIN (test code = 7.0 g/dL 6.3-8.2 3499760984) ALBUMIN (test code = 4.0 g/dL 3.5-5 8388489389) ALK PHOS (test code = 73 U/L 34-122 6582324891) ALTv (test code = 19 U/L 5-35 1742-6) AST(SGOT) (test code = 33 U/L 13-40 5328944655) eGFR Calculation mL/min/1.73m2 (Non-) (test code = 2561115794) eGFR Calculation mL/min/1.73m2 () (test code = 2850296375) MUSTAPHA (test code = MUSTAPHA) Association of Glomerular Filtration Rate (GFR) and Staging of Kidney Disease* + --+ --+ ------+| GFR (mL/min/1.73 m2) ?| With Kidney Damage ?| ?Without Kidney Damage+ --------+ --------+ +| ?>90 ?| ?Stage one ?| ? Normal ?+ ---+ ---+ -------+| ?60-89 ?| ?Stage two ?| ? Decreased GFR ? + --+ --+ ------+| ?30-59 ?| ?Stage three ?| ? Stage three ? + --+ --+ ------+| ?15-29 ?| ?Stage four ? | ? Stage four ?+ ---+ ---+ -------+| ?<15 (or dialysis) ? ?| ?Stage five ? | ? Stage five ?+ ---+ ---+ -------+ *Each stage assumes the associated GFR level has been in effect for at least three months. ?Stages 1 to 5, with or without kidney disease, indicate chronic kidney disease. Notes: Determination of stages one and two (with eGFR >59mL/min/1.73 m2) requires estimation of kidney damage for at least three months as defined by structural or functional abnormalities of the kidney, manifested by either:Pathological abnormalities or Markers of kidney damage (including abnormalities in the composition of the blood or urine or abnormalities in imaging tests). Lab Interpretation Abnormal (test code = 26542-0) [facility] WITH [id number] 15:37:00 Test Item Value Reference Range Interpretation Comments WBC (test code = See_Comment [Automated 7088-2) message] The sy stem which generated this result transmitted reference range : 4.30 - 11.10 10*3/?L. The reference range was not used to interpret this result as normal/abnormal . RBC (test code = See_Comment [Automated 072-0) message] The sy stem which generated this result transmitted reference range : 3.93 - 5.25 10*6/?L. The reference range was not used to interpret this result as normal/abnormal . HGB (test code = 12.8 g/dL 11.6-15 718-7) HCT (test code = 42.8 % 35.7-45.2 4544-3) MCV (test code = 98.4 fL 80.6-95.5 H 787-2) MCH (test code = 29.4 pg 25.9-32.8 785-6) MCHC (test code = 29.9 g/dL 31.6-35.1 L 786-4) RDW-SD (test code = 47.8 fL 39-49.9 41881-1) RDW-CV (test code = 13.2 % 12-15.5 788-0) PLT (test code = See_Comment [Automated 777-3) message] The sy stem which generated this result transmitted reference range : 166 - 358 10*3/ ?L. The reference r eddie was not used to interpret this result as normal/abnormal . MPV (test code = 9.2 fL 9.5-12.9 L 54132-0) NRBC/100 WBC (test See_Comment [Automat ed code = 6452384090) message] The system which generated this result transmitted reference range : 0.0 - 10.0 /100 WBCs. The refer ence range was not u sed to interpret th is result as normal/abnormal . NRBC x10^3 (test code <0.01 See_Comment [Auto mated = 6002548965) message] The s ystem which generated this result transmitted reference range : 10*3/?L. The reference range was not used to interpret this result as normal/abnormal . GRAN MAT (NEUT) % 55.4 % (test code = 770-8) IMM GRAN % (test code 0.20 % = 3489436162) LYMPH % (test code = 31.8 % 736-9) MONO % (test code = 8.4 % 5905-5) EOS % (test code = 3.5 % 713-8) BASO % (test code = 0.7 % 706-2) GRAN MAT x10^3(ANC) 3.30 10*3/uL 1.88-7.09 (test code = 1649517475) IMM GRAN x10^3 (test <0.03 0-0.06 code = 2599344186) LYMPH x10^3 (test code 1.89 10*3/uL 1.32-3.29 = 731-0) MONO x10^3 (test code 0.50 10*3/uL 0.33-0.92 = 742-7) EOS x10^3 (test code = 0.21 10*3/uL 0.03-0.39 711-2) BASO x10^3 (test code 0.04 10*3/uL 0.01-0.07 = 704-7) Lab Interpretation Abnormal (test code = 34625-4) [facility]"
[2022-03-11 17:10] VITALS: BMI 26.4
[2022-03-11 18:46] LABS: Hematocrit 42.2 % (36.0-45.0); Lymphocytes % 9.3 % (15.3-44.8); MPV 7.1 fL (7.6-11.3); RBC Red Blood Cell Count 4.78 M/uL (3.86-4.86)
[2022-03-11] MEDS ORDERED: lisinopriL 20 MG TAB PO ONE (19:00)
[2022-03-11] MEDS ORDERED: NA CHLORIDE 0.9% 1,000 ML IV SCH (19:00)
[2022-03-11] MEDS ORDERED: METOPROLOL TAR 50 MG TAB PO ONE ×2 (19:00→20:55)
--- NOTE | 2022-03-11 19:00 | RAD REPORT ---
EXAM DESCRIPTION: RAD - Chest Pa And Lat (2 Views) - 03/11/2022 6:50 pm CLINICAL HISTORY: pneumonia COMPARISON: Chest Pa And Lat (2 Views) dated 11/23/2018; CHEST PA AND LAT 2 VIEW dated 01/10/2013; CHES T PA AND LAT 2 VIEW dated 01/03/2004 FINDINGS: Lines: None. Lungs: No evidence of edema or pneumonia. Pleural: No significant pleural effusions or pneumothorax. Cardiac: The heart size is within normal limits. Bones: No acute fractures. Other: Surgical clips in the left breast and axilla. IMPRESSION: No acute cardiopulmonary disease.
[2022-03-11 19:02] LABS: Albumin 3.2 g/dL (3.4-5.0); Bilirubin Total 1.1 mg/dL (0.2-1.0)
--- NOTE | 2022-03-11 19:09 | RAD REPORT ---
EXAM DESCRIPTION: RAD - Thoracic Spine Ap/Lat - 03/11/2022 6:50 pm CLINICAL HISTORY: back pain COMPARISON: Chest Pa And Lat (2 Views) dated 11/23/2018 FINDINGS: Age indeterminate L1 compression fracture. There is approximately 40% loss of height anter iorly. No malalignment. No significant focal degenerative changes. Osteopenia. IMPRESSION: Age indeterminate L1 compression fracture.
[2022-03-11 19:23] LABS: Troponin High Sensitivity 150.5 pg/mL (<58.9)
[2022-03-11] MEDS ORDERED: ACETAMINOPHEN 500 MG TAB PO PRN (20:29)
[2022-03-11] MEDS ORDERED: AMLODIPINE 5 MG TAB PO ONE (21:06)
[2022-03-11] MEDS ORDERED: ASPIRIN EC 81 MG TAB PO ONE (21:31)
[2022-03-11] MEDS ORDERED: ONDANSETRON 4 MG/2 ML VIAL IV PRN (21:34)
[2022-03-11] MEDS: NITROGLYCERIN 1 GM PKT TD SCH (22:05)
[2022-03-11] MEDS: HYDROCODONE/APAP 5/325 MG TAB PO PRN (22:07)
[2022-03-11] MEDS: ENOXAPARIN 80 MG/0.8 ML SQ SCH (22:08)
[2022-03-12 04:34] LABS: Potassium 3.1 mmol/L (3.5-5.1)
[2022-03-12 04:37] LABS: Troponin High Sensitivity 169.3 pg/mL (<58.9)
[2022-03-12] MEDS: cloNIDine HCL 0.1 MG TAB PO PRN ×2 (05:17→11:10)
[2022-03-12] MEDS: NITROGLYCERIN 1 GM PKT TD SCH ×4 (05:18→18:19)
[2022-03-12] MEDS ORDERED: lisinopriL 20 MG TAB PO SCH (09:00)
[2022-03-12] MEDS ORDERED: POTASSIUM CL SA 10 MEQ TAB PO ONE (09:00)
--- NOTE | 2022-03-12 09:00 | HP ---
Date of Admission: 03/11/2022 Chief Complaint: Cough, shortness of breath, and not feeling good. History Of Present Illness: Ms. Llamas is a very pleasant 86-year-old female patient, who was brought into office by her today with above-mentioned problem. About a week ago during nighttime, t he patient was found lying down on the closet floor after she had fallen down. Ambulance was called and she was taken to [facility] Emergency Room where she was kept in hospital for 2 days and s he was diagnosed as having influenza A. Her COVID-19 test was negative. She was released to go home last week on . She was discharged to go home with a tapering dose of prednisone as well as Tamiflu and she was instructed to take all her previous home medications, but apparently says that they took home medications when she went to [facility], but they never came home with, s o she has not taken any of her home medications, which are mainly her antihypertensive medication and statin therapy since she has been discharged from the hospital. Her blood pressure was very high wh en I saw her at office. She did not look good at all and did not feel good at all and reports that s he has been having problem with cough and shortness of breath with any activity as well as shortness of breath at nighttime where she feels like she has to sit upright. Denies any fever, no expectorati on. After she was evaluated at our office, decision was made to admit her to the hospital for furthe r evaluation and management of this problem. Review of Systems: Respiratory: Significant for cough and shortness of breath. Musculoskeletal: Having some mid back pain in last few days all across her mid back. 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 Allergies: TO PENICILLIN CAUSING RASH AND HIVES. Medications: Prior to this hospital admission; she was on atorvastatin 20 mg daily, Symbicort 2 puff s 2 times a day, hydralazine 50 mg taking half tablet 2 times a day so 25 mg 2 times a day, hydrochlo rothiazide 25 mg daily, lisinopril 10 mg she takes 2 tablets 2 times a day, metoprolol 50 mg 2 times a day, and zolpidem 5 mg at bedtime. Past Medical History: Peripheral neuropathy, allergic rhinitis, impaired fasting glucose, mild persi stent asthma, hypertension, hyperlipidemia, bilateral breast cancer, leg edema, [facility], and osteopenia. Past Surgical History: Tonsillectomy, bilateral mastectomy in 2004, hysterectomy, arthroscopic left knee surgery, and breast reconstruction. Family History: Father , had heart disease. Mother , had Alzheimer disease, hypertension an d osteoporosis. Social History: Prior history of smoking. Use of alcohol regularly. Immunization History: The patient had her influenza vaccine in September 2021 and COVID-19 vaccine in November 20, 2020, December 18, 2020, and July 26, 2021. Physical Examination: Vital Signs: Blood pressure today at office 178/100, pulse 125, temperature 98.2, respiratory rate 1 8, weight 169.8 pounds, height 66 inches. General: The patient appears weaker than normal, not in distress. HEENT: Head atraumatic, normocephalic. Conjunctivae nonerythematous. Sclerae white. Mouth, no thr ush or edema noted. Ears/Nose, no mass, lesion, discharge noted. Neck: Supple. No JVD, lymph nodes, bruit, thyromegaly noted. Lungs: Diminished air entry in the lower lung arriaza. Not using any accessory muscles of respiratio n. Heart: Normal heart sounds, no murmur or gallop. Abdomen: Soft, bowel sounds normal. No guarding, rigidity, tenderness, mass, hepatosplenomegaly, dis tention, or bruit noted. Extremities: No leg edema. No calf tenderness. Skin: No rash, ulcer, cellulitis. Lymphatics: No lymph node enlargement in neck, supraclavicular, infraclavicular region. Neuro: No focal neurological deficit. Chest: Unremarkable. External Genitalia: Deferred. Rectal: Deferred. Laboratory Data: After the patient was admitted to the hospital, stat EKG was done which showed sinu s tachycardia. WBC 10.9, hemoglobin 14, platelets 261. Liver function tests unremarkable. Troponin elevated at 150.5, procalcitonin less than 0.05. Lactic acid 2. Sodium 139, potassium 3, chloride 101, bicarb 33, BUN 9, creatinine 0.81, glucose 137. X-ray of chest was unremarkable. Thoracic spin e x-ray shows L1 compression fracture of indeterminate age. Impression: 1.Non-ST segment elevation myocardial infarction. 2.Compression fracture of L1 spine. 3.Hypertension, uncontrolled. 4.Hyperlipidemia. 5.Mild persistent asthma. 6.Impaired fasting glucose. 7.Hypokalemia. 8.Bilateral breast cancer. 9.Osteoarthritis, multiple sites. 10.Osteopenia. 11.Peripheral neuropathy. 12.Allergic rhinitis. Plan: Admit the patient to hospital for further evaluation and management of this problem. The brennan ent is appropriate for inpatient and is expected to spend 2 midnights in hospital. We will go ahead and start the patient on Lovenox 80 mg subcutaneous injection every 12 hours starting first dose now and give aspirin 160 mg today and starting tomorrow 81 mg daily will be continued. We will consult C ardiology, get echo with Doppler tomorrow. Further cardiac evaluation will depend on parts specialist's recommendation. The patient was given metoprolol 50 mg and lisinopril 20 mg p.o. x1 dose. If that s till did not help bring her blood pressure down, so we give second dose of metoprolol 50 mg along wit h amlodipine 5 mg and nitro paste was started. We will monitor blood pressure if necessary, make fur ther adjustment on antihypertensive medication. Overnight, we will get fasting lipid profile done, r eplace electrolyte per protocol, repeat blood work tomorrow morning including electrolytes. I will s ee her tomorrow morning for followup. Our original concern when I saw her at office prior to any alina t results was pneumonia and congestive heart failure. At this point, there is no evidence of pneumonia on the chest x-ray. DERIC/MODL Voice ID: [id number]
[2022-03-12] MEDS: ASPIRIN EC 81 MG TAB PO SCH (09:06)
[2022-03-12] MEDS: ENOXAPARIN 80 MG/0.8 ML SQ SCH ×2 (09:06→21:38)
[2022-03-12] MEDS: AMLODIPINE 5 MG TAB PO SCH ×2 (09:06→21:38)
[2022-03-12] MEDS: METOPROLOL TAR 50 MG TAB PO SCH ×2 (09:07→21:39)
[2022-03-12] MEDS: lisinopriL 20 MG TAB PO SCH ×2 (09:07→21:38)
--- NOTE | 2022-03-12 12:58 | EKG ---
Test Date: 2022-03-11 Test Time: 19:53:19 Mother Helper: RT Edouard MEASUREMENT RESULTS: Intervals: Rate: 115 VT: 164 QRSD: 96 QT: 346 QTc: 478 [place]: P: 1 VT: 164 QRS: -39 T: -10 INTERPRETIVE STATEMENTS: Sinus tachycardia Left axis deviation Left ventricular hypertrophy with repolarization abnormality Inferior infarct, age undetermined Abnormal ECG Compared to ECG 06/16/2007 10:55:32 Left-axis deviation now present Early repolarization now present Myocardial infarct finding now present Sinus rhythm no longer present Electronically Signed On 03-12-22 12:57:30 CDT by Messi Boucher
[2022-03-12] MEDS ORDERED: FUROSEMIDE 20 MG/ 2ML VIAL IV ONE (13:05)
[2022-03-12] MEDS ORDERED: LORAZEPAM 0.5 MG TABLET PO ONE ×2 (13:05→19:48)
--- NOTE | 2022-03-12 13:19 | ECHO ---
HEIGHT: 5 ft 6 in WEIGHT: 164 lb 0 oz DATE OF STUDY: 03/12/[address]: Rodrigo Robin MD 2-DIMENSIONAL: YES M.MODE: YES DOPPLER: YES COLOR FLOW: YES TDS: NO PORTABLE: YES DEFINITY: NO BUBBLE STUDY: NO DIAGNOSIS: NSTEMI CARDIAC HISTORY: CATHERIZATION: NO SURGERY: NO PROSTHETIC VALVE: NO PACEMAKER: NO MEASUREMENTS (cm) DIASTOLIC (NORMALS) SYSTOLIC (NORMALS) IVSd 1.2 (0.6-1.2) LA Diam 2.8 (1.9-4.0) LVEF 67% LVIDd 3.7 (3.5-5.7) LVIDs 2.4 (2.0-3.5) %FS 36% LVPWd 1.2 (0.6-1.2) Ao Diam 2.2 (2.0-3.7) 2 DIMENSIONAL ASSESSMENT: RIGHT ATRIUM: NORMAL LEFT ATRIUM: NORMAL RIGHT VENTRICLE: NORMAL LEFT VENTRICLE: NORMAL TRICUSPID VALVE: NORMAL MITRAL VALVE: NORMAL PULMONIC VALVE: NORMAL AORTIC VALVE: NORMAL PERICARDIAL EFFUSION: NONE AORTIC ROOT: NORMAL LEFT VENTRICULAR WALL MOTION: NORMAL. DOPPLER/COLOR FLOW: MILD TRICUSPID REGURGITATION. COMMENTS: NORMAL 2D ECHO WITH DOPPLER. MILD TRICUSPID REGURGITATION. NO WALL MOTION ABNORMALITY. NO EFFUSION. TECHNOLOGIST: BRITT JAIN
[2022-03-12] MEDS: MORPHINE 2 MG/ML SYR IV PRN (13:29)
[2022-03-12] MEDS ORDERED: ATORVASTATIN 40 MG TAB PO SCH (21:00)
--- NOTE | 2022-03-13 | PN ---
Date of Progress Note: 03/12/2022 Subjective: Patient was seen this morning for followup. No new complaints or problems reported by t he patient. She was lying in bed, not in any distress. She did not sleep much last night. Her daug hter was with her at bedside. Denies any chest pain. She continues to have back pain and pain medic ation helps her a little bit. Objective: Vital Signs: Reviewed. HEENT: Unremarkable. Lungs: Clear to auscultation except diminished air entry in the lung bases, but better today than ye . Heart: Heart sounds normal. Abdomen: Soft. Bowel sounds normal. No guarding, rigidity, tenderness, distention. Extremities: No leg edema. Laboratory Data: Sodium 140, potassium 3.1, chloride 104, bicarb 35, BUN 8, creatinine 0.80, glucose 126, troponin 169.3. Impression: 1.Non-ST segment elevation myocardial infarction. 2.Hypokalemia. 3.Hypertension. 4.Hyperlipidemia. Plan: We will go ahead and follow up on echocardiogram results. Continue current antihypertensive m edication. Replace electrolyte per order and the patient will have echo done today. Details were di scussed with Dr. Buocher and he informed me that the patient's echo was unremarkable and he will do c ardiac cath tomorrow morning and further plan of treatment will depend on cardiac cath findings. One dose of Lasix 20 mg IV was ordered today and the patient was having some anxiety bumps, so lorazepam was also ordered today. DERIC/MODL Voice ID: [id number] Report ID: [id number]
--- NOTE | 2022-03-13 00:39 | CON ---
Date of Consultation: 03/12/2022 Reason For Consultation: Non-ST elevation myocardial infarction, hypertension that is poorly control led. History Of Present Illness: Ms. Llamas is 86, came in initially with a possibility of pneumonia versu s congestive heart failure; however, her chest x-ray is negative. She has had a recent fall and has an L1 compression fracture. Came in very hypertensive, weak, short of breath. Potassium was 3.0. B lood pressure was 211/101. Troponin went up to 169. Echocardiogram is unremarkable. We are asked w chino Robin to evaluate her for possible heart catheterization. Past Medical History: As stated above. Allergies: SHE IS ALLERGIC TO PENICILLIN. Medications: Include aspirin, Norvasc, metoprolol, lisinopril, and clonidine. Review of Systems: Negative. Social History: Negative. Family History: Negative. Physical Examination: Vital Signs: Initial blood pressure was 211/101, is 170/84 now, sinus rhythm. HEENT: Negative. Neck: Supple with no bruit. Chest: Clear. Cardiac: Exam revealed an S4 gallop with regular rhythm and rate. Abdomen: Benign. Extremities: Revealed no clubbing or cyanosis. She had trace edema. Diagnostic Data: As stated earlier. Impression And Plan: 1.Hypertension, poor controlled, maybe secondary to noncompliance. 2.Elevated troponin, possibly secondary to hypokalemia and hypertension. 3.Coronary artery disease, must be ruled out. The heart catheterization will be planned for tomorro w. The patient understands the risk and the benefits of the procedure and agrees to proceed. 4.Recent fracture of her L1 as a compression fracture. We will see what her echo shows and we will see what her catheterization shows tomorrow and plan on further therapy accordingly. Case has been d iscussed with Dr. Robin. LOUIS/CARMITA Voice ID: [id number] Report ID: [id number]
[2022-03-13] MEDS: HALOPERIDOL LACT 5 MG/ML INJ IV PRN ×3 (03:14→15:00)
[2022-03-13] MEDS: NITROGLYCERIN 1 GM PKT TD SCH ×3 (06:00→14:25)
[2022-03-13] MEDS ORDERED: LIDOCAINE 1% 20 ML MDV ONE (06:52)
[2022-03-13] MEDS ORDERED: HEPA 1000U/500MLS 1,000 UNIT/500 ML BAG IV ONE (06:52)
[2022-03-13 07:36] LABS: Protime INR 1.16
[2022-03-13] MEDS: ENOXAPARIN 80 MG/0.8 ML SQ SCH (09:00)
[2022-03-13] MEDS: lisinopriL 20 MG TAB PO SCH (11:02)
[2022-03-13] MEDS: ASPIRIN EC 81 MG TAB PO SCH (11:02)
[2022-03-13] MEDS: METOPROLOL TAR 50 MG TAB PO SCH (11:02)
[2022-03-13] MEDS: AMLODIPINE 5 MG TAB PO SCH (11:03)
[2022-03-13 12:28] VITALS: O2SAT 92
--- NOTE | 2022-03-13 14:23 | PN ---
Date of Progress Note: 03/13/2022 We have plan to do a heart catheterization of Ms. Llamas today because of elevated troponin, weakness, shortness of breath, normal echo, elevated troponin. However, she had a change in mental status thi s morning, probably secondary to owning, pain medications. She is definitely not ready to have a heart catheterization. She does not feel like she can lay flat on her back because of her L1 compre ssion fracture. The case was discussed with Dr. Robin and the family. I am comfortable with her [facility] home. She will see Dr. Robin in the near future. I will make an arrangement for an outpatient hea rt catheterization. LOUIS/CARMITA Voice ID: [id number] Report ID: [id number]
[2022-03-13] MEDS: MORPHINE 2 MG/ML SYR IV PRN (14:25)
[2022-03-13 14:26] VITALS: BP 170/80
[2022-03-13 15:42] VITALS: TEMP 97.7
[2022-03-13] MEDS: HYDROCODONE/APAP 5/325 MG TAB PO PRN (16:28)
--- NOTE | 2022-03-13 16:31 | RAD REPORT ---
EXAM DESCRIPTION: MRI - Lumbar Spine Wo Con- 03/13/2022 4:24 pm CLINICAL HISTORY: Back pain Back pain, radiculopathy COMPARISON: No comparisons FINDINGS: Acute moderate compression fracture affects the T12 vertebral body. There is loss of verte bral body height estimated at 30-40% with mild posterior retropulsion and mild central canal narrowin g. Multilevel posterior disc bulges is noted throughout the lumbar spine. Mild anterolisthesis is seen o f L3 on 4 and L4 on 5. Mild central canal stenosis is present lower lumbar levels. IMPRESSION: 30-40% osteoporotic acute compression fracture affects T12 with mild retropulsion centra l canal narrowing at this level. Moderate lumbar spondylosis is present without high-grade canal or foraminal stenosis seen at any lev el.
--- NOTE | 2022-03-14 18:49 | DS ---
Date of Discharge: 03/13/2022 Disposition: Discharged to go home. Physical Examination: HEENT: Unremarkable. Lungs: Clear to auscultation. Heart: Sounds normal. Abdomen: Soft. Bowel sounds normal. No guarding, rigidity, tenderness, distention. Extremities: No leg edema. Laboratory Data: Upon admission, white count 10.9, hemoglobin 14, platelets 260, sodium 139, potassi um 3, chloride 101, bicarb 33, BUN 9, creatinine 0.81, glucose 137. Troponin 150.5. Liver function tests unremarkable. Second troponin 169.3, and this was done yesterday morning with sodium 140, pota ssium 3.1, chloride 104, bicarb 35, BUN 8, creatinine 0.80, glucose 126. Her LDL cholesterol was 59, total cholesterol 122, triglycerides 102, HDL 43. Echocardiogram showed normal ejection fraction 67 %, mild tricuspid regurgitation. MRI of the lumbar spine done today shows compression fracture of T1 2. Lumbar spine x-ray of the thoracic spine had shown fracture of L1 compression fracture. So, we w ill go with the MRI result, which will be more accurate and it is actually fracture of T12 thoracic s pine. Final Diagnoses: 1.Qds-CP-tunpsejex myocardial infarction. 2.Compression fracture of T12 spine. 3.Hypertension, uncontrolled. 4.Hyperlipidemia. 5.Mild persistent asthma. 6.Impaired fasting glucose. 7.Hypokalemia. 8.Bilateral breast cancer. 9.Osteoarthritis, multiple sites. 10.Osteoporosis. 11.Peripheral neuropathy. 12.Allergic rhinitis. 13.Encephalopathy, unspecified. Hospital Course: This is an 86-year-old female patient, who was admitted to the hospital. Please se e kita H and P for more information. She was admitted to the hospital. We ruled out pneumonia, which was a concern when she was evaluated. Chest x-ray did not show any pneumonia. She was given p ain medication for pain control. Her cardiac enzyme was abnormal indicating non-STEMI. Cardiology c onsultation was requested from Dr. Boucher and Dr. Boucher was planning to do cardiac cath today. Ye sterday, during course of day probably in the artery afternoon, the patient had some anxiety problem and she responded well to 1 dose of lorazepam 0.5 mg and last night she requested something to help h er rest. A second dose of lorazepam 0.5 mg was ordered to be given last night. The patient did not go to sleep until almost around 3 o'clock or so, nurse contacted me, which was 3 o'clock this morning . Nurse contacted me and informed me that the patient was having a lot of agitation, confusion, gil ucination, and she wanted to leave the hospital at that time. Haldol 1 mg IV every 4 hours as needed was ordered, so after getting 1 dose of Haldol the patient started to sleep around 4 o'clock, so whe n I saw her this morning between 6:30 and 7 she was sleeping. Her daughter was present with her at [facility]. She did wake up when I talked to her, but went back to sleep. The patient's cardiac cath pr ocedure was canceled today because of events of last night and she was still not back to her normal s elf this morning after she woke up, so cardiac cath was canceled and I did discuss all those details with the patient's daughter earlier, but there is a possibility that we may have to cancel this proce dure and in that case Dr. Boucher will decide when it is appropriate for her to do cardiac cath. As the day progressed today, her condition improved. Her confusion and hallucination resolved and she w ill do lot better at home instead of being in the hospital as far as her confusion is concerned in be d. Medically, she is stable for discharge. Dr. Boucher will perform cardiac cath on outpatient [facility] s as I have discussed with him today and I will see her next week for followup. The patient will als o see Dr. Boucher next week for followup. She is going to be evaluated for her back pain. If this i mproves on its own, we may have to refer her to Dr. Rodríguez. Discharge Medications: Amlodipine 5 mg 2 times a day, aspirin 81 mg daily, atorvastatin 40 mg daily at bedtime, [place] 5 mg 4 times a day as needed for pain, lisinopril 20 mg 2 times a day, metoprolol tartrate 50 mg 2 times a day. Continue Symbicort and zolpidem as you were taking before. Stop hydra lazine. DERIC/MODL Voice ID: [id number] Report ID: [id number]
== END 2022-03-13 18:00 | disposition home or self-care (01) | DRG 281 ==
LOC: 2ND 16:50
PROVIDERS: ADMIT Internal Medicine; ATTEND Internal Medicine
DX: I21.4 Non-ST elevation (NSTEMI) myocardial infarction (principal); S22.089A Unspecified fracture of T11-T12 vertebra, initial encounter for closed fracture; G93.40 Encephalopathy, unspecified; I10 Essential (primary) hypertension; E78.5 Hyperlipidemia, unspecified; J45.30 Mild persistent asthma, uncomplicated; E87.6 Hypokalemia; M15.9 Polyosteoarthritis, unspecified; M81.0 Age-related osteoporosis without current pathological fracture; G62.9 Polyneuropathy, unspecified; Z85.3 Personal history of malignant neoplasm of breast; J30.9 Allergic rhinitis, unspecified; Z88.0 Allergy status to penicillin
CPT/HCPCS: 36415; 71046; 72070; 72148; 80048; 80053; 80061; 83605; 83735; 83880; 84132; 84145; 84484; 85025; 85610; 85730; 93005; 93306; J1630; J1644; J1940; J2270; J7030